=== PATIENT | male | born 1950 | race Caucasian/White ===

== ENCOUNTER 2017-05-12 10:24 | Day surgery (SDC) | payer MEDICARE, BC ==
[~2017-05-12 10:24] MED LIST: RINGER'S SOLUTION,LACTATED 1,000 ML IV PRN
--- NOTE | 2017-05-12 14:13 | OR ---
Operative Report - Dictated Report Narrative: Date: 05/12/2017 Preop diagnosis: Screening for colon cancer Postop diagnosis: Sigmoid diverticulosis Procedure: Total colonoscopy Staff surgeon: Justin Crowell MD Anesthesia: MAC per [employer] EBL: none Specimens: none Description: After informed consent and appropriate sedation the patient was placed in the left lateral decubitus position. Digital rectal exam and anal inspection were normal. A flexible fiberoptic video colonoscope was introduced and advanced under direct vision without difficulty to the cecum. The usual landmarks were identified. Preparation was excellent and excellent views were obtained. The findings were of a normal cecum, ascending colon, hepatic flexure, transverse colon, splenic flexure, descending colon, sigmoid colon except for diverticuli, and rectum. The mucosal color, vasculature and texture were normal throughout. No suspicious masses were seen. The patient tolerated the procedure well without apparent complications and was discharged from the endoscopy suite in stable condition.
[2017-05-12 14:36] VITALS: BP 134/90
== END 2017-05-12 10:25 | disposition home or self-care (01) ==
LOC: AMB 10:24
PROVIDERS: ATTEND Specialist
PROC: 0DJD8ZZ Inspection of Lower Intestinal Tract, Via Natural or Artificial Opening Endoscopic (ICD-10-PCS; principal; 2017-05-12 11:30)
DX: Z12.11 Encounter for screening for malignant neoplasm of colon (principal); K57.30 Diverticulosis of large intestine without perforation or abscess without bleeding; I25.10 Atherosclerotic heart disease of native coronary artery without angina pectoris; E78.5 Hyperlipidemia, unspecified; Z68.25 Body mass index [BMI] 25.0-25.9, adult; Z80.0 Family history of malignant neoplasm of digestive organs